=== PATIENT | male | born 2000 | race Caucasian/White ===

== ENCOUNTER 2023-08-11 19:37 | Emergency (ER) | payer BC, MEDICAID, SELFPAY ==
[2023-08-11 19:57] VITALS: BP 138/82; PULSE 77; RESP 18; TEMP 37; O2SAT 97; BMI 36.0
[2023-08-11 20:01] VITALS: PULSE 83
--- NOTE | 2023-08-11 21:34 | CRLHL7_ITS ---
For Patients: As a result of the Century Cures Act, medical imaging exams and procedure reports are released immediately into your electronic medical record. You may view this report before your referring provider. If you have questions, please contact your health care provider. INDICATION: Trauma. TECHNIQUE: Multiplanar CT examination of the head was performed without the use of intravenous contrast. COMPARISON: None. FINDINGS: There is mild volume loss asymmetric involving the right cerebral hemisphere, likely congenital, poorly characterized on this examination. The ventricles and cerebral sulci are otherwise unremarkable. No loss of rutledge-white differentiation suggestive of recent territorial infarct. No intracranial hemorrhage, abnormal extra-axial fluid collection or midline shift. The basal cisterns are patent. The visualized paranasal sinuses and mastoid air cells are clear. The visualized orbits and calvarium are unremarkable. The cerebellar tonsils are in normal position. IMPRESSION: 1. No acute intracranial findings. 2. Mild nonspecific asymmetric volume loss involving the right cerebral hemisphere, likely congenital but poorly evaluated on this examination. Nonemergent MRI may be considered for further evaluation if clinically warranted. Please note that all CT scans at this facility use dose modulation, iterative reconstruction, and/or weight-based dosing when appropriate to reduce radiation dose to as low as reasonably achievable. Dictated by Chuhco East MD @ 08/11/2023 10:29:31 PM (Electronically Signed)
[2023-08-11 21:37] VITALS: BP 130/87; PULSE 73; RESP 16; O2SAT 96
[2023-08-11 21:57] LABS: Albumin* 4.6 g/dL (3.3-5.0); Chloride* 103 mmol/L (96-114)
[2023-08-11 21:58] LABS: Potassium* 4.4 mmol/L (3.6-5.1); Sodium* 139 mmol/L (135-149)
[2023-08-11 22:00] LABS: Anion Gap 9 mEq/L (7-15); Aspartate Amino Transferase* 47 U/L (12-35); Bilirubin Total* 1.2 mg/dL (0.1-1.5); Carbon Dioxide* 27 mmol/L (20-32); Creatinine* 0.8 mg/dL (0.5-1.5); Est. Creatinine Clearance* 135.41; Estimated Glomerular Filt Rate 128 ml/min; Total Protein* 7.7 g/dL (6.0-8.3)
[2023-08-11 22:01] LABS: Alanine Aminotransferase* 95 U/L (4-50); Alkaline Phosphatase* 79 U/L (40-150); Blood Urea Nitrogen* 17 mg/dL (5-24); Calcium* 9.5 mg/dL (8.4-10.6); Glucose* 90 mg/dL (60-115)
--- NOTE | 2023-08-11 22:28 | ED_ITS ---
HPI - General Adult General Date Seen: 08/11/23 Chief complaint: Neuro Symptoms/Altered Deficit Stated complaint: Tremors in hands Time Seen by Provider: 08/11/23 20:49 History of Present Illness HPI narrative: This is a 23-year-old male with a history of TBI, who is accompanied to the ER today by his mother and father with concern for twitching of his left hand index finger. He does have history of a distant TBI and also a concussion that he suffered about 4 months ago while playing and soccer. He also has had a previous workup for possible absent seizures but it sounds like the workup was either negative or indeterminate so he is not on any seizure meds. He suffered a concussion in April while playing soccer when he collided with another player's. He had no loss of consciousness. He was evaluated in the emergency room and diagnosed with a concussion on clinical grounds and did not have a head CT. He only had a couple of days a mild headache and since then symptoms have resolved. It sounds like he does not have any long-term concussion symptoms. He used to live with his parents but actually moved out live on his own a couple of months ago. He started working a new job at [employer] a few weeks ago. For about the past 3 weeks ago he has been having twitching involving his left hand index finger. He told his parents that he was twitching ?continuously?, but that is not exactly accurate. It which is off and on throughout each day. He says it bothers him and feels sore after a twitches. No other new symptoms. No headache. No fever. No confusion. No blurry vision. No nausea or vomiting. No twitching in other parts of his body. No anxiety. No history of alcohol use or drug use. He is not on any medications. His mother notes that he does play a lot of video games that and that he does not eat very good diet since he has been living alone. He has a distant history of being told that he has nonalcoholic fatty liver disease. Because of the twitching of his finger he called the phone triage nurse. In explaining to the nurse that he had had a recent concussion now with twitching was finger she sent him in. Parents are not sure if they really need to come to the ER for this but came in on the advice the triage nurse. His fingers not twitching right now and has not been twitching this evening. He says he thinks it stopped around suppertime tonight. Related Data Home Medications Medication Instructions Recorded Confirmed No Known Home Medications 08/11/23 08/11/23 Allergies Allergy/AdvReac Type Severity Reaction Status Date / Time amoxicillin Allergy Unknown Verified 08/11/23 20:03 [facility] Social History Smoking Status: Never smoker Do you use any of these nicotine containing products: None Second hand tobacco smoke exposure: No How often do you have a drink containing alcohol: 2-3 times a week AUDIT-C Alcohol total score: 3 Non-prescribed substance use: declined to answer Exam Narrative: Exam Narrative: Constitutional: Appears well-developed and well-nourished. Alert. Conversant. Non toxic. HENT: Head: Atraumatic. No depressed skull fracture, Raccoon Eyes, Iraheta's sign, or hemotympanum. Face normal. TMs normal Nose: Nose normal. Mouth/Throat: Oral mucosa is clear and moist. no trismus. Pharynx normal. Tonsils symmetric. No tonsillar enlargement, erythema, or exudate. Eyes: Conjunctivae normal. EOM normal. Pupils equal, round, and reactive to light. No scleral icterus. Neck: Normal range of motion. Neck supple. No tracheal deviation present. Cardiovascular: Normal rate, regular rhythm. No gallop. No friction rub. No murmur heard. Symmetric radial artery pulses Pulmonary/Chest: Effort normal. No stridor. No respiratory distress. No wheezes. No rales. No rhonchi . No tenderness. Abdominal: Soft. Bowel sounds normal. No distension. No mass. No tenderness. No rebound. No guarding. Musculoskeletal: RUE: Normal range of motion. No tenderness. No deformity LUE: Normal range of motion. No tenderness. No deformity no redness, swelling, rash or other deformity of his finger. Intact flexion and extension of the wrist, thumb, and MCP, PIP, DI P joint of each finger. Intact radial and ulnar digital nerve sensory function. RLE: Normal range of motion. No edema. No tenderness. No deformity LLE: Normal range of motion. No edema. No tenderness. No deformity Lymph: No cervical adenopathy. Neurological: Mental status normal. Attention normal. Alert and oriented x3. GCS 15. Memory normal. Speech fluent. Cognition normal. Cranial Nerves intact II-XII except I did not formally test gag or visual acuity. EOMI. Palate elevates symmetrically and tongue protrudes in the midline. Strength: 5/5 trapezius on the right and left 5/5 deltoid on the right and left 5/5 biceps on the right and left 5/5 triceps on the right and left 5/5 stock sheets cleaner inspector on the right and left 5/5 thumb opposition on the right and le ft 5/5 finger abduction on the right and le ft 5/5 hip flexors (L3) on the right and le ft 5/5 quadriceps (L4) on the right and lef t 5/5 tibialis anterior on the right and l eft 5/5 EHL (L5) on the right and left 5/5 gastrocnemius (S1) on the right and left 5/5 hamstring on the right and left Sensation intact to light touch in both upper extremities (C4-T1) Sensation intact to light touch in Both lower extremities (L4-S1). Finger to nose and coordination normal. Gait normal. Skin: Skin is warm and dry. No rash noted. No pallor. Normal capillary refill. Psychiatric: Normal mood. Normal affect. Const: Vital Signs, click to edit/add: Vital Signs - 24 hr 08/11/23 19:57 08/11/23 20:01 08/11/23 21:37 Temperature 98.6 F Pulse Rate [Pulse Oximeter] 77 73 Pulse Rate [Right Pulse Oximeter] 83 Respiratory Rate 18 16 Blood Pressure [Ri [facility] Upper Arm] 138/82 130/87 Pulse Oximetry 97 96 Oxygen Delivery Me thod Room Air Room Air 08/11/23 22:57 Temperature Pulse Rate [Pulse Oximeter] 67 Pulse Rate [Right Pulse Oximeter] Respiratory Rate 16 Blood Pressure [Ri t Upper Arm] 138/78 Pulse Oximetry 97 Oxygen Delivery Me thod Room Air Course Vital Signs Vital signs: Initial Vital Signs Temperature 98.6 F 08/11/23 19:57 Temperature Source Temporal Artery Scan 08/11/23 19:57 Pulse Rate 77 08/11/23 19:57 Respiratory Rate 18 08/11/23 19:57 Blood Pressure 138/82 08/11/23 19:57 Blood Pressure Mean 100 08/11/23 19:57 Blood Pressure Position Sitting 08/11/23 19:57 Pulse Oximetry 97 08/11/23 19:57 Oxygen Delivery Method Room Air 08/11/23 19:57 Vital Signs Temperature 98.6 F 08/11/23 19:57 Pulse Rate 77 08/11/23 19:57 Respiratory Rate 18 08/11/23 19:57 Blood Pressure 138/82 08/11/23 19:57 Pulse Oximetry 97 08/11/23 19:57 Oxygen Delivery Method Room Air 08/11/23 19:57 Temperature 98.6 F 08/11/23 19:57 Pulse Rate 67 08/11/23 22:57 Respiratory Rate 16 08/11/23 22:57 Blood Pressure 138/78 08/11/23 22:57 Pulse Oximetry 97 08/11/23 22:57 Oxygen Delivery Method Room Air 08/11/23 22:57 Medical Decision Making MDM Narrative Medical decision making narrative: 23-year-old male with a distant history of TBI as well as a concussion about 4 months ago presenting to the ER today with his parents for about 3 weeks of intermittent twitching affecting his left hand, index finger. While the patient was here in the ER he had no twitching of his finger and has not had any since dinnertime tonight. Parents are a little bit unsure how much it has actually been twitching and history is somewhat limited because the patient's previous TBI. Differential for the finger twitching which is broad. At this point there is no evidence for any acute drug intoxication or withdrawal such as alcohol. Consider possible muscle fasciculations or overuse since he did recently start a job working at [employer] and mother notes that he plays a lot of video game since he moved out of the house to live on his own. Consider possible remote metabolic disturbance such as PICC potassium disorder or hypocalcemia. However CMP shows normal electrolytes. Of note is LFTs are mildly abnormal. Mother notes that he had been diagnosed with non alcoholic fatty liver disease by his ribbon inker. Would recommend outpatient surveillance for his LFTs. With his history of head trauma and distant history of TBI also consider possible partial seizures. He is not having any twitching or seizure activity here in the ER tonight. We did do a noncontrast head CT because of his reported head injury. Fortunately head CT shows no acute in traumatic injury or signs of chronic subdural or any acute bleed. There is possible mild right-sided atrophy noted on the CT scan by the radiologist. They recommend outpatient MRI for further characterization. Erratically, would be conceivable that the patient did have an anatomic abnormality such as atrophy affecting the right side of his pain this might serve as a nidus for a partial seizure. He will need outpatient follow-up with Neurology. He will follow-up with his primary care provider, Dr. Aguilar, in the [facility] and then his parents endorse a plan to most likely have him follow-up [facility] Neurology. Precautions for return to the ER carefully reviewed. Questions answered. Discussed labs and imaging findings with the patient and his parents. Lab Data Labs: Lab Results 08/11/23 Range/Units 21:40 Sodium 139 (135-149) mmol/L Potassium 4.4 (3.6-5.1) mmol/L Chloride 103 (96-114) mmol/L Carbon Dioxide 27 (20-32) mmol/L Anion Gap 9 (7-15) mEq/L BUN 17 (5-24) mg/dL Creatinine 0.8 (0.5-1.5) mg/dL Estimated Creat Clear 135.41 Estimated GFR 128 ml/min Glucose 90 (60-115) mg/dL Calcium 9.5 (8.4-10.6) mg/dL Total Bilirubin 1.2 (0.1-1.5) mg/dL AST 47 H (12-35) U/L ALT 95 H (4-50) U/L Alkaline Phosphatase 79 (40-150) U/L Total Protein 7.7 (6.0-8.3) g/dL Albumin 4.6 (3.3-5.0) g/dL Imaging Data CT scan - head: Attestation: I have reviewed the pertinent imaging results. Radiologist's impression: IMPRESSION: 1. No acute intracranial findings. 2. Mild nonspecific asymmetric volume loss involving the right cerebral hemisphere, likely congenital but poorly evaluated on this examination. Nonemergent MRI may be considered for further evaluation if clinically warranted. Discharge Plan Discharge Clinical Impression: Abnormal LFTs, Fasciculation, Mild cerebral atrophy Patient Disposition: Home, Self-Care Condition: Stable Instructions: Non-Alcoholic Fatty Liver Disease (ED), Tremors (ED) Additional Instructions: At this time, the cause for your finger twitching is not clear. It is possible that your having muscle spasms due to overuse. It is also possible that your finger twitching could be a ?partial seizure?. Your CT scan tonight shows that you have very mild atrophy of the right side of your brain, which could conceivably causes seizures. It is very important for you to follow-up with your regular doctor within the next 2-3 days to have a recheck. Arrange an outpatient MRI of your brain to reassess the atrophy. You also should arrange o utpatient follow-up with a brain specialist called a neurologist. You can call the [facility] Neurology Department or have your doctor arrange a referral. If you have worsening twitching of your finger or twitching in other parts of your body, or any concerns, please come back to the ER right away. Your liver function tests are mildly abnormal. We suspect that you probably have non alcoholic fatty liver disease. Please follow-up with your regular doctor to recheck this. Prescriptions: No Action No Known Home Medications Follow Up/Referrals: Provider,Not a Local [Primary Care Provider] - Stand Alone Forms: [employer] Info Instructions
[2023-08-11 22:57] VITALS: BP 138/78; PULSE 67; RESP 16; O2SAT 97
== END 2023-08-11 22:58 | disposition home or self-care (01) ==
PROVIDERS: Emergency Provider Emergency Medicine
DX: G31.9 Degenerative disease of nervous system, unspecified (principal); R25.3 Fasciculation; R94.5 Abnormal results of liver function studies
CPT/HCPCS: 36415; 70450; 80053; 99283; 99284